=== PATIENT | female | born 1980 | race Two or more races ===

== ENCOUNTER 2018-04-22 08:06 | Emergency (ER) | payer SELFPAY ==
[~2018-04-22] VITALS: Ht 160 cm; Wt 88.1 kg
[2018-04-22 08:11] VITALS: BP 140/85
[2018-04-22] MEDS ORDERED: [UNRECOGNIZED DRUG - REMARK] PO (08:19)
[2018-04-22] MEDS ORDERED: IBUP-2071 PO (08:19)
== END 2018-04-22 08:44 | disposition left against medical advice (07) ==
LOC: EMS 08:08
DX: R07.9 Chest pain, unspecified (principal); R07.81 Pleurodynia; Z53.21 Procedure and treatment not carried out due to patient leaving prior to being seen by health care provider